=== PATIENT | male | born 1995 | race Caucasian/White ===

== ENCOUNTER 2017-05-15 01:21 | Emergency (ER) | payer SELFPAY ==
[2017-05-15 01:21] VITALS: BMI 19.1
[2017-05-15] MEDS ORDERED: Dexamethasone 4 mg/1 ml IM STA (02:46)
[2017-05-15] MEDS ORDERED: Amoxicillin-Clav 875-125 mg Tab PO STA (02:46)
[2017-05-15] MEDS ORDERED: Dexamethasone 4 mg/1 ml ONE (02:55)
[2017-05-15] MEDS ORDERED: Amoxicillin-Clav 875-125 mg Tab PO ONE (02:56)
--- NOTE | 2017-05-15 03:13 | C.PDOC ---
History Of Present Illness Patient is a 21 year old male who presents to the ER with a complaint of a sore throat and fever since last night. Patient has a Hx of frequent throat infections and had a peritonsillar abscess 3 years ago. Denies cough, SOB, nausea or vomiting. Time Seen by Provider: 05/15/17 02:11 Chief Complaint (Nursing): Fever History Per: Patient History/Exam Limitations: no limitations Onset/Duration Of Symptoms: Days (Since last night) Current Symptoms Are (Timing): Still Present Location Of Pain: Throat Sick Contacts (Context): None Associated Symptoms: Fever, Sore Throat. denies: Cough, Nausea, Vomiting, Other (SOB) Ear Symptoms: Bilateral: None Recent travel outside of the [place]: No Past Medical History Reviewed: Historical Data, Nursing Documentation, Vital Signs Vital Signs: Last Vital Signs Temp 100.1 F H 05/15/17 03:23 Pulse 98 H 05/15/17 03:23 Resp 16 05/15/17 03:23 BP 108/61 05/15/17 03:23 Pulse Ox 97 05/15/17 03:23 - Medical History PMH: No Chronic Diseases - [facility] Procedures PERITONSILLAR I & D (05/26/13) Family History: States: Unknown Family Hx - Social History Hx Tobacco Use: No Hx Alcohol Use: No Hx Substance Use: No - Immunization History Hx Tetanus Toxoid Vaccination: No Hx Influenza Vaccination: No Hx Pneumococcal Vaccination: No Review Of Systems Constitutional: Positive for: Fever ENT: Positive for: Throat Pain Respiratory: Negative for: Cough, Shortness of Breath Gastrointestinal: Negative for: Nausea, Vomiting Physical Exam - Physical Exam Appears: Non-toxic Skin: Normal Color, Warm, Dry Head: Atraumatic, Normacephalic Ear(s): Bilateral: Normal Oral Mucosa: Moist Throat: Other (Tonsillar swelling, erythema and exudates. No abscess. Uvula midline.) Neck: Normal, Supple Chest: Symmetrical, No Tenderness Cardiovascular: Rhythm Regular, No Murmur Respiratory: Normal Breath Sounds, No Rales, No Rhonchi, No Wheezing Gastrointestinal/Abdominal: Soft, No Tenderness Neurological/Psych: Oriented x3, Normal Speech, Normal Cognition ED Course And Treatment O2 Sat by Pulse Oximetry: 98 (Room air) Pulse Ox Interpretation: Normal Progress Note: Tylenol, augmentin, decadron and motrin administered. Throat culture ordered. Disposition - Disposition Referrals: Domo Quispe MD [Staff Provider] - Ray Leija MD [Staff Provider] - Disposition: HOME/ ROUTINE Disposition Time: 03:12 Condition: GOOD Additional Instructions: Follow up with the medical doctor within 1-2 days. Return if worsened. Prescriptions: Amoxicillin/Clavulanate [Augmentin 875 MG-125 MG] 1 tab PO BID #14 tab Ibuprofen [Motrin] 600 mg PO TID #21 tab Instructions: Pharyngitis (ED) - Clinical Impression Clinical Impression: Pharyngitis - Scribe Statement The provider has reviewed the documentation as recorded by the Scribe Luis A Hare All medical record entries made by the Scribe were at my direction and personally dictated by me. I have reviewed the chart and agree that the record accurately reflects my personal performance of the history, physical exam, medical decision making, and the department course for this patient. I have also personally directed, reviewed, and agree with the discharge instructions and disposition.
[2017-05-15 03:24] VITALS: BP 108/61; PULSE 98; RESP 16; TEMP 100.1
[2017-05-15 03:52] VITALS: O2SAT 98
== END 2017-05-15 03:23 | disposition home or self-care (01) ==
LOC: C.ER 01:21
DX: J02.9 Acute pharyngitis, unspecified (principal)
CPT/HCPCS: 87070; 87430; 96372; 99283; J1100

== ENCOUNTER 2017-06-05 20:08 | Observation (INO) | payer SELFPAY ==
[2017-06-05 20:08] VITALS: BMI 19.1
[2017-06-05 20:13] VITALS: O2SAT 99
[2017-06-05] MEDS ORDERED: Sodium Chloride 0.9% 1,000 ML IV STA (21:31)
[2017-06-05] MEDS ORDERED: Dexamethasone 4 mg/1 ml IVP STA (21:32)
--- NOTE | 2017-06-05 21:55 | C.PDOC ---
History Of Present Illness <Arabella Hwang - Last Filed: 06/05/17 23:26> <Sebastian Elizalde - Last Filed: 06/06/17 00:00> 21 year old male presents to the ED with complaints of worsening sore throat and feeling as though something is swollen in his throat for the last two days. Patient states he was seen on 05/15/17 with sore throat complaints and was discharged with Augmentin. He completed his Augmentin treatment and 2-3 afterwards he began to have a sore throat again. Patient denies any headache, vomiting, or other complaints. (Arabella Hwang) History Per: Patient History/Exam Limitations: no limitations Onset/Duration Of Symptoms: Days, Persistent (symptoms since april with some relief ) Current Symptoms Are (Timing): Still Present Location Of Pain: Throat Associated Symptoms: Sore Throat. denies: Fever, Chills Recent travel outside of the [place]: No Additional History Per: Prior Records <Arabella Hwang - Last Filed: 06/05/17 23:26> <Sebastian Elizalde - Last Filed: 06/06/17 00:00> Time Seen by Provider: 06/05/17 20:15 Chief Complaint (Nursing): ENT Problem Past Medical History Reviewed: Historical Data, Nursing Documentation, Vital Signs Family History: States: Unknown Family Hx - Social History Hx Tobacco Use: No Hx Alcohol Use: No Hx Substance Use: No - Immunization History Hx Tetanus Toxoid Vaccination: No Hx Influenza Vaccination: No Hx Pneumococcal Vaccination: No <Arabella Hwang - Last Filed: 06/05/17 23:26> Review Of Systems Constitutional: Negative for: Fever, Chills ENT: Positive for: Throat Pain, Throat Swelling Cardiovascular: Negative for: Chest Pain Respiratory: Negative for: Cough, Shortness of Breath Gastrointestinal: Negative for: Nausea, Vomiting, Abdominal Pain, Diarrhea <Arabella Hwang - Last Filed: 06/05/17 23:26> Physical Exam - Physical Exam Appears: Non-toxic, No Acute Distress Skin: Warm, Dry Head: Atraumatic Eye(s): bilateral: Normal Inspection, PERRL, EOMI Ear(s): Bilateral: Normal Oral Mucosa: Moist Throat: Other (Swelling to the right peritonsillar area; uvula deviated to the left; patient has hot potato voice ) <Arabella Hwang - Last Filed: 06/05/17 23:26> ED Course And Treatment - Laboratory Results Result Diagrams: 06/05/17 21:56 06/05/17 21:56 O2 Sat by Pulse Oximetry: 99 Progress Note: CT soft tissue neck is pending. Case was signed out to at 23:20. Pending CT report and dispo. <Arabella Hwang - Last Filed: 06/05/17 23:26> - Laboratory Results Result Diagrams: 06/05/17 21:56 06/05/17 21:56 - CT Scan/US CT soft tissue neck Other Rad Studies (CT/US): Read By Radiologist, Radiology Report Reviewed CT/US Interpretation: EXAM: CT Neck With Intravenous Contrast. CLINICAL HISTORY: 21 year old male with throat pain. Possible right throat swelling. Possible peritonsillar abscess. TECHNIQUE: Axial computed tomography images of the neck with intravenous contrast. This CT exam was performed using one or more of the following dose reduction techniques: automated exposure control, adjustment of the mA and/or kV according to patient size, and/or use of. iterative reconstruction technique. Coronal and sagittal reformatted images were created and reviewed. EXAM DATE/TIME: 06/05/17 (9:39pm). COMPARISON: No relevant prior studies available. FINDINGS: Nasopharynx: Unremarkable. Oropharynx: Prominent swelling/edema of each tonsil ("kissing tonsils"), with faint hypodense area. (13 mm size) on the right side --- consistent with right peritonsillar phlegmon or early abscess. formation. Hypopharynx: Unremarkable. Larynx: Unremarkable. Normal epiglottis. Trachea: Unremarkable. Retropharyngeal space: Unremarkable. Submandibular/parotid glands: Unremarkable. Glands are normal in size. Thyroid: Unremarkable. No enlarged or calcified nodules. Bones/joints: No acute fracture. Soft tissues: Unremarkable. Vasculature: No acute findings. Lymph nodes: Unremarkable. No lymphadenopathy. Lung apices: Unremarkable as visualized. IMPRESSION: Bilateral acute tonsillitis, with right peritonsillar phlegmon or early abscess formation (13 mm size). Airway compromise at the level of the enlarged tonsils ("kissing tonsils"). <Sebastian Elizalde - Last Filed: 06/06/17 00:00> Disposition - Disposition Disposition Time: 23:24 <Arabella Hwang - Last Filed: 06/05/17 23:26> <Sebastian Elizalde - Last Filed: 06/06/17 00:00> - Disposition Condition: STABLE - Clinical Impression Clinical Impression: Peritonsillar abscess - Scribe Statement The provider has reviewed the documentation as recorded by the Scribe <Arabella Hwang - Last Filed: 06/05/17 23:26> <Sebasitan Elizalde - Last Filed: 06/06/17 00:00> - Scribe Statement Reina Bates All medical record entries made by the Scribe were at my direction and personally dictated by me. I have reviewed the chart and agree that the record accurately reflects my personal performance of the history, physical exam, medical decision making, and the department course for this patient. I have also personally directed, reviewed, and agree with the discharge instructions and disposition. (Arabella Hwang) Physician Patient Turnover Patient Signed Over To: Sebastian Elizalde Handoff Comments: CT report and dispo <Arabella Hwang - Last Filed: 06/05/17 23:26>
[2017-06-05 22:00] LABS: BASO % 0.3 % (0.0-2.0); EOS % 0.3 % (0.0-4.0); HEMOGLOBIN 14.9 g/dL (12.0-18.0); LYMPH # 1.5 K/uL (1.0-4.3); LYMPH % 14.5 % (20.0-40.0); MEAN CELL VOLUME 81.6 fL (80.0-94.0); MEAN CORPUSCULAR HEMOGLOBIN 26.6 pg (27.0-31.0); MEAN CORPUSCULAR HGB CONC 32.6 g/dL (33.0-37.0); MEAN PLATELET VOLUME 8.4 fL (7.2-11.7); MONO % 9.7 % (0.0-10.0); NEUT # 7.7 K/uL (1.8-7.0); NEUT % 75.2 % (50.0-75.0); RBC 5.59 Mil/uL (4.40-5.90); RED CELL DISTRIBUTION WIDTH 13.9 % (11.5-14.5); WHITE BLOOD COUNT 10.2 K/uL (4.8-10.8)
[2017-06-05] MEDS ORDERED: Dexamethasone 4 mg/1 ml ONE ×2 (22:00→22:01)
[2017-06-05] MEDS ORDERED: Sodium Chloride 0.9% 1,000 ML ONE (22:00)
[2017-06-05 22:12] LABS: ALBUMIN 4.2 g/dL (3.5-5.0)
[2017-06-05 22:14] LABS: GFR AFRICAN-AMERICAN > 60; GFR NON-AFRICAN AMERICAN > 60
[2017-06-05 22:15] LABS: ALB/GLOB RATIO 1.1 (1.0-2.1); ALT/SGPT 22 U/L (21-72); AST/SGOT 18 U/L (17-59); BLOOD UREA NITROGEN 9 mg/dL (9-20); CALCIUM 9.3 mg/dl (8.6-10.4)
[2017-06-05] MEDS ORDERED: Clindamycin 600mg/50ml D5W 600 MG/50 ML VIAL IVPB ONE (22:23)
[2017-06-05] MEDS ORDERED: Iodixanol 320 mg/ml 150 ml Bottle IV ONE (22:29)
[2017-06-06 03:33] VITALS: RESP 20; TEMP 97.5
[2017-06-06] MEDS: CLINDAMYCIN IVPB SCH ×3 (06:08→16:09)
[2017-06-06] MEDS: SODIUM CHLORIDE 0.9% IVPB SCH ×3 (06:08→16:09)
[2017-06-06] MEDS: Sodium Chloride 0.9% 1,000 ML IV SCH ×2 (06:12→11:46)
--- NOTE | 2017-06-06 06:28 | CP.PCM.HP ---
Addendum entered and electronically signed by Tashia Nguyen 06/06/17 08:09 : ROS-Mouth: throat swelling, sore throat, dysphagia Original Note: <Tashia Nguyen. - Last Filed: 06/06/17 07:36> History of Present Illness - History of Present Illness History of Present Illness: CC: swollen throat HPI: 21 year old male with a past medical history of peritonsilar abscess and recurrent sore throats, presents with swollen throat. Patient had a swollen throat 2 weeks ago and treated it with amoxicillin. The swollen throat did not completely subside after antibiotic treatment. Currently, his pain is a 3/10, but his pain gets as high as 9/10. The patient tried hot tea with lemon with no relief. Patient admits to have fevers, sore throat, dysphagia, and phlegm. The patient has had 3 total episode of swollen throat. Patient had surgery for his peritonsilar abscess when he was 16years old. Patient denies chills, weakness, chest pain, palpitations, shortness of breath, abdominal pain, nausea, and vomiting. PMD: none PMHx: denies PSx: surgery for peritonsilar abscess 2011 FamHx: all 4 grandparents had strokes Allergies: NKDA Medication: none Present on Admission - Present on Admission Any Indicators Present on Admission: No Review of Systems - Constitutional Constitutional: Fever. absent: Chills, Excessive Sweating - EENT Eyes: absent: Change in Vision, Other Visual Disturbances - Cardiovascular Cardiovascular: absent: Chest Pain, Diaphoresis, Dyspnea, Palpitations - Respiratory Respiratory: Pain on Inspiration. absent: Cough, Dyspnea - Gastrointestinal Gastrointestinal: absent: Abdominal Pain, Constipation, Diarrhea, Nausea, Vomiting - Genitourinary Genitourinary: absent: Dysuria, Urinary Frequency - Musculoskeletal Musculoskeletal: absent: Back Pain, Muscle Weakness - Integumentary Integumentary: Unusual Bruising. absent: Rash, Swelling - Neurological Neurological: absent: Dizziness, Loss of Vision, Weakness - Endocrine Endocrine: absent: Fatigue, Palpitations Past Patient History - Infectious Disease Hx of Infectious Diseases: None - Past Medical History & Family History Past Medical History?: No - Past Social History Smoking Status: Light Smoker < 10 Cigarettes Daily - MUSCULOSKELETAL/RHEUMATOLOGICAL Hx Falls: No - PSYCHIATRIC Hx Substance Use: No - SURGICAL HISTORY Hx Surgeries: Yes Other/Comment: "throat sx to drain abcess in my throat 2016" - ANESTHESIA Hx Anesthesia: Yes Hx Anesthesia Reactions: No Hx Malignant Hyperthermia: No Meds Allergies/Adverse Reactions: Allergies Allergy/AdvReac Type Severity Reaction Status Date / Time No Known Allergies Allergy Verified 12/17/14 22:44 Results - Vital Signs Recent Vital Signs: Last Vital Signs Temp 97.5 F L 06/06/17 02:37 Pulse 81 06/06/17 02:37 Resp 20 06/06/17 02:37 BP 113/73 06/06/17 02:37 Pulse Ox 99 06/06/17 01:02 - Labs Result Diagrams: 06/05/17 21:56 06/05/17 21:56 Assessment & Plan (1) Acute tonsillitis Assessment and Plan: Possible peritonsilar abscess Group A beta Strep: positive CT: b/l acute tonsillitis with right peritonsilar phlegmon or early abscess formation (13mm); kissing tonsils, airway compromise at levels of enlarged tonsils. CXR: f/u EKG: f/u Coags: f/u Blood Cx: f/u Clindamycin 500mg IV Q 6 Toradol 15mgIN prn ENT consults, Dr. Alcazar, help appreciated. Status: Acute (2) Prophylactic measure Assessment and Plan: SCDs Regular Diet Pepcid 20mg PO BID Coags: f/u Status: Acute <Gerardo Zamudio - Last Filed: 06/06/17 19:25> Results - Vital Signs Recent Vital Signs: Last Vital Signs Temp 97.5 F L 06/06/17 02:37 Pulse 61 06/06/17 15:35 Resp 20 06/06/17 02:37 BP 128/66 06/06/17 15:35 Pulse Ox 99 06/06/17 01:02 - Labs Result Diagrams: 06/05/17 21:56 06/05/17 21:56 Assessment & Plan - Date & Time Date: 06/06/17 (I have seen and examined the patient. I agree with the findings and plan of care as documented by Dr. Sykes. Patient with acute recurrent tonsillitis. Consult to ENT. Clinda IV for now. Medically optimize in case patient needs to go for procedure. Monitor for acute changes. Symptomatic treatment.) Time: 19:24 Attending/Attestation - Attestation I have personally seen and examined this patient.: Yes I have fully participated in the care of the patient.: Yes I have reviewed all pertinent clinical information: Yes
[2017-06-06] MEDS ORDERED: Lidocaine 2% w Epi 1:100,000 Inj IJ ONE (08:30)
--- NOTE | 2017-06-06 08:31 | RAD ---
HISTORY: pre-op clearance COMPARISON: No prior. TECHNIQUE: Chest PA and lateral FINDINGS: LUNGS: Mild venous congestion. Right hilar prominence. Punctate nodular density at the right lung apex may represent prominent vessel on end. PLEURA: No significant pleural effusion identified. No pneumothorax apparent. CARDIOVASCULAR: Normal. OSSEOUS STRUCTURES: No significant abnormalities. VISUALIZED UPPER ABDOMEN: Normal. OTHER FINDINGS: None. IMPRESSION: Mild venous congestion.
--- NOTE | 2017-06-06 09:16 | CT ---
CT neck soft tissue History: Right throat swelling. Evaluate for peritonsillar abscess. Comparison: None available. Technique: Axial computed tomographic images were performed through the neck with the use of intravenous contrast. Subsequently, sagittal and coronal reformatted images were obtained. This CT exam was performed using one or more of the following dose reduction techniques: Automated exposure control, adjustment of the mA and/or kV according to patient size, and/or use of iterative reconstruction technique. Findings: Prominent swelling and thickening of the bilateral tonsils which appear to abut each other. In addition, there is a 1.8 x 1.1 centimeter focal area of somewhat ill-defined low attenuation within the right peritonsillar region best seen on series 2, image 30 concerning for a right peritonsillar phlegmon and/or early abscess collection. Minimal mucosal thickening of the left maxillary sinus. Bilateral parotid and submandibular glands are preserved. Thyroid gland is preserved. Nasal and hypopharynx appear grossly preserved. Visualized osseous structures are grossly preserved. Few shotty lymph nodes are noted. 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 Impression: Findings concerning for a bilateral acute tonsillitis with a right peritonsillar phlegmon and or early abscess collection as described above. This measures up to 1.8 x 1.1 centimeters. In addition, there is a suggestion of possible airway compromise at the level of the enlarged tonsils. These findings were preliminarily reported at 11:24 p.m. on 06/05/[address] Lizette Ortiz from [employer].
--- NOTE | 2017-06-06 10:04 | CP.PCM.PN ---
Subjective - Date & Time of Evaluation Date of Evaluation: 06/06/17 Time of Evaluation: 10:02 - Subjective Subjective: Incision and drainage of peritonsillar abscess right: Area was injected with lido and epi, incision made in peritonsillar area. Clamp dissections done, pus was noted coming out, bleeding controlled with time. Objective - Vital Signs/Intake and Output Vital Signs (last 24 hours): Temp Pulse Resp BP Pulse Ox 97.5 F L 81 20 113/73 99 06/06/17 02:37 06/06/17 02:37 06/06/17 02:37 06/06/17 02:37 06/06/17 01:02 - Medications Medications: Current Medications Clindamycin Phosphate 500 mg/ (Sodium Chloride) 53.3333 mls @ 106.667 mls/hr IVPB Q6H [facility] Last Admin: 06/06/17 06:08 Dose: 106.667 mls/hr Sodium Chloride (Sodium Chloride 0.9%) 1,000 mls @ 100 mls/hr IV .Q10H [facility] Last Admin: 06/06/17 06:12 Dose: 100 mls/hr Ketorolac Tromethamine (Toradol) 15 mg IVP Q6 PRN PRN Reason: Pain, Mild (1-3)
[2017-06-06 15:35] VITALS: BP 128/66; PULSE 61
[2017-06-06] MEDS ORDERED: Pneumococcal 23-Valent Vaccine IM ONE (15:35)
--- NOTE | 2017-06-06 17:52 | CP.PCM.DIS ---
<Héctor Penaloza - Last Filed: 06/06/17 17:49> Provider - Provider Date of Admission: 06/05/17 23:35 Attending physician: Dr. Toyin Saldana DO Primary care physician: None Consults: ENT - Dr. Quispe Time Spent in preparation of Discharge (in minutes): 45 Diagnosis - Discharge Diagnosis (1) Peritonsillar abscess Status: Acute Comment: I&D performed by Dr. Quispe on 06/06/17. Started on Augmentin 875/125mg PO Q12h for 10 days. f/u in [facility] and Dr. Quispe within 1 week. Group A Strep positive Hospital Course - Lab Results Lab Results: Most Recent Lab Values WBC 10.2 K/uL (4.8-10.8) 06/05/17 21:56 RBC 5.59 Mil/uL (4.40-5.90) 06/05/17 21:56 Hgb 14.9 g/dL (12.0-18.0) 06/05/17 21:56 Hct 45.6 % (35.0-51.0) 06/05/17 21:56 MCV 81.6 fL (80.0-94.0) D 06/05/17 21:56 MCH 26.6 pg (27.0-31.0) L 06/05/17 21:56 MCHC 32.6 g/dL (33.0-37.0) L 06/05/17 21:56 RDW 13.9 % (11.5-14.5) 06/05/17 21:56 Plt Count 237 K/uL (130-400) 06/05/17 21:56 MPV 8.4 fL (7.2-11.7) 06/05/17 21:56 Neut % (Auto) 75.2 % (50.0-75.0) H 06/05/17 21:56 Lymph % (Auto) 14.5 % (20.0-40.0) L 06/05/17 21:56 Greene % (Auto) 9.7 % (0.0-10.0) 06/05/17 21:56 Eos % (Auto) 0.3 % (0.0-4.0) 06/05/17 21:56 Baso % (Auto) 0.3 % (0.0-2.0) 06/05/17 21:56 Neut # 7.7 K/uL (1.8-7.0) H 06/05/17 21:56 Lymph # 1.5 K/uL (1.0-4.3) 06/05/17 21:56 Greene # 1.0 K/uL (0.0-0.8) H 06/05/17 21:56 Eos # 0.0 K/uL (0.0-0.7) 06/05/17 21:56 Baso # 0.0 K/uL (0.0-0.2) 06/05/17 21:56 Sodium 138 mmol/L (132-148) 06/05/17 21:56 Potassium 3.7 mmol/L (3.6-5.2) 06/05/17 21:56 Chloride 103 mmol/L (98-107) 06/05/17 21:56 Carbon Dioxide 24 mmol/L (22-30) 06/05/17 21:56 Anion Gap 15 (10-20) 06/05/17 21:56 BUN 9 mg/dL (9-20) 06/05/17 21:56 Creatinine 1.0 MG/DL (0.8-1.5) 06/05/17 21:56 Est GFR ( Amer) > 60 06/05/17 21:56 Est GFR (Non-Af Amer) > 60 06/05/17 21:56 Random Glucose 90 mg/dL (75-110) 06/05/17 21:56 Calcium 9.3 mg/dl (8.6-10.4) 06/05/17 21:56 Total Bilirubin 1.0 mg/dL (0.2-1.3) 06/05/17 21:56 AST 18 U/L (17-59) 06/05/17 21:56 ALT 22 U/L (21-72) 06/05/17 21:56 Alkaline Phosphatase 94 U/L (38-126) 06/05/17 21:56 Total Protein 7.8 g/dL (6.3-8.3) 06/05/17 21:56 Albumin 4.2 g/dL (3.5-5.0) 06/05/17 21:56 Globulin 3.7 gm/dL (2.2-3.9) 06/05/17 21:56 Albumin/Globulin Ratio 1.1 (1.0-2.1) 06/05/17 21:56 Grp A Beta Strep Ag Positive (NEGATIVE) H 06/05/17 21:59 - Hospital Course Hospital Course: As per admission HPI: 21 year old male with a past medical history of peritonsilar abscess and recurrent sore throats, presents with swollen throat. Patient had a swollen throat 2 weeks ago and treated it with amoxicillin. The swollen throat did not completely subside after antibiotic treatment. Currently, his pain is a 3/10, but his pain gets as high as 9/10. The patient tried hot tea with lemon with no relief. Patient admits to have fevers, sore throat, dysphagia, and phlegm. The patient has had 3 total episode of swollen throat. Patient had surgery for his peritonsilar abscess when he was 16years old. Patient denies chills, weakness, chest pain, palpitations, shortness of breath, abdominal pain, nausea, and vomiting. Patient was admitted for treatment of peritonsillar abscess. Patient's CT showedb/l acute tonsillitis with right peritonsilar phlegmon or early abscess formation (13mm); kissing tonsils, airway compromise at levels of enlarged tonsils. Group A beta strep positive. Patient was started on Clindamycin. Patient was seen by ENT, Dr. Quispe, who performed an I&D of the abscess, which drain pus. Patient was instructed to continue liquid diet for one day then may resume regular diet. Patient discharged with Augmentin 875/125mg PO Q12h for 10 days, with instructions to followup in the [facility] and Dr. Quispe. Discharge Exam - Head Exam Head Exam: NORMAL INSPECTION, NORMOCEPHALIC - Eye Exam Eye Exam: EOMI, Normal appearance Pupil Exam: NORMAL ACCOMODATION, PERRL - ENT Exam ENT Exam: Mucous Membranes Moist Additional comments: open wound from tonsillar abscess I&D - Respiratory Exam Respiratory Exam: Clear to PA & Lateral, NORMAL BREATHING PATTERN, UNREMARKABLE. absent: Prolonged Expiratory Phase, Rales, Rhonchi, Wheezes - Cardiovascular Exam Cardiovascular Exam: REGULAR RHYTHM, +S1, +S2 - GI/Abdominal Exam GI & Abdominal Exam: Normal Bowel Sounds, Soft, Unremarkable. absent: Distended , Firm, Tenderness - Extremities Exam Extremities exam: normal capillary refill, pedal pulses present - Neurological Exam Neurological exam: Alert, CN II-XII Intact, Oriented x3 - Psychiatric Exam Psychiatric exam: Normal Affect, Normal Mood - Skin Skin Exam: Dry, Intact, Normal Color, Warm Discharge Plan - Discharge Medications Prescriptions: Amoxicillin/Clavulanate [Augmentin 875 MG-125 MG] 1 tab PO Q12H #10 tab - Follow Up Plan Condition: FAIR Disposition: HOME/ ROUTINE Instructions: Amoxicillin/Clavulanate Potassium (By mouth), Peritonsillar Abscess (DC) Additional Instructions: Please discharge patient home, as per Dr. Saldana. Patient is to followup with Dr. Quispe in 1 week. Patient is to establish care in the [facility] in 1 week, to obtain ENT referral before going to Dr. Quispe. Patient is continue liquid only diet for one day, then may resume regular diet. Patient is to take Augmentin 875/125mg PO Q12h for 10 days. If symptoms worsen, please return to the hospital for further evaluation and treatment. Referrals: [facility] at [facility] [Outside] Domo Quispe MD [Staff Provider] - <Toyin Saldana V - Last Filed: 06/06/17 23:49> Provider - Provider Date of Admission: 06/05/17 23:35 Attending physician: Gerardo Zamudio MD Hospital Course - Lab Results Lab Results: Most Recent Lab Values WBC 10.2 K/uL (4.8-10.8) 06/05/17 21:56 RBC 5.59 Mil/uL (4.40-5.90) 06/05/17 21:56 Hgb 14.9 g/dL (12.0-18.0) 06/05/17 21:56 Hct 45.6 % (35.0-51.0) 06/05/17 21:56 MCV 81.6 fL (80.0-94.0) D 06/05/17 21:56 MCH 26.6 pg (27.0-31.0) L 06/05/17 21:56 MCHC 32.6 g/dL (33.0-37.0) L 06/05/17 21:56 RDW 13.9 % (11.5-14.5) 06/05/17 21:56 Plt Count 237 K/uL (130-400) 06/05/17 21:56 MPV 8.4 fL (7.2-11.7) 06/05/17 21:56 Neut % (Auto) 75.2 % (50.0-75.0) H 06/05/17 21:56 Lymph % (Auto) 14.5 % (20.0-40.0) L 06/05/17 21:56 Greene % (Auto) 9.7 % (0.0-10.0) 06/05/17 21:56 Eos % (Auto) 0.3 % (0.0-4.0) 06/05/17 21:56 Baso % (Auto) 0.3 % (0.0-2.0) 06/05/17 21:56 Neut # 7.7 K/uL (1.8-7.0) H 06/05/17 21:56 Lymph # 1.5 K/uL (1.0-4.3) 06/05/17 21:56 Greene # 1.0 K/uL (0.0-0.8) H 06/05/17 21:56 Eos # 0.0 K/uL (0.0-0.7) 06/05/17 21:56 Baso # 0.0 K/uL (0.0-0.2) 06/05/17 21:56 Sodium 138 mmol/L (132-148) 06/05/17 21:56 Potassium 3.7 mmol/L (3.6-5.2) 06/05/17 21:56 Chloride 103 mmol/L (98-107) 06/05/17 21:56 Carbon Dioxide 24 mmol/L (22-30) 06/05/17 21:56 Anion Gap 15 (10-20) 06/05/17 21:56 BUN 9 mg/dL (9-20) 06/05/17 21:56 Creatinine 1.0 MG/DL (0.8-1.5) 06/05/17 21:56 Est GFR ( Amer) > 60 06/05/17 21:56 Est GFR (Non-Af Amer) > 60 06/05/17 21:56 Random Glucose 90 mg/dL (75-110) 06/05/17 21:56 Calcium 9.3 mg/dl (8.6-10.4) 06/05/17 21:56 Total Bilirubin 1.0 mg/dL (0.2-1.3) 06/05/17 21:56 AST 18 U/L (17-59) 06/05/17 21:56 ALT 22 U/L (21-72) 06/05/17 21:56 Alkaline Phosphatase 94 U/L (38-126) 06/05/17 21:56 Total Protein 7.8 g/dL (6.3-8.3) 06/05/17 21:56 Albumin 4.2 g/dL (3.5-5.0) 06/05/17 21:56 Globulin 3.7 gm/dL (2.2-3.9) 06/05/17 21:56 Albumin/Globulin Ratio 1.1 (1.0-2.1) 06/05/17 21:56 Grp A Beta Strep Ag Positive (NEGATIVE) H 06/05/17 21:59 Attending/Attestation - Attestation I have personally seen and examined this patient.: Yes I have fully participated in the care of the patient.: Yes I have reviewed all pertinent clinical information, including history, physical exam and plan: Yes Notes (Text): Patient seen, examined and case discussed with day-time resident. Resident seen and observed ENT I&D patient's tonsillar abscess at bedside today , recommended 10 day course of Augmentin and follow-up in the clinic and [facility] upon discharge. Per ENT, patient is stable for discharge and to not eat for the first 24 hours to not infect the site. Discussed with patient post-procedure, patient is aware upon completion of antibiotics that its likely he will need a tonsillectomy. Advised diet modifications in light of I&D. Discussed disorder order and discharge instructions with day-time resident and patient. Patient given script for Augmentin 875-125mg PO BID for next ten days; advised to take with yogurt. F/u [facility] ([phone]; I physically placed the number on patient's cell phone and advised to call and to follow-up with ENT). Patient is medically stable for discharge. Per ENT, patient is stable for discharge. This is a summary of patient's hospitalization. Please see EMR for further details
[2017-06-09] MEDS ORDERED: Pneumococcal 23-Valent Vaccine IM ONE (10:00)
--- NOTE | 2017-06-11 07:58 | CARD ---
APPROVED REPORT EKG Measurement Heart [id number] <Conclusion> Sinus rhythm Early repolarization ST abnormality Otherwise normal ECG
== END 2017-06-06 20:14 | disposition home or self-care (01) ==
LOC: C.ER 20:08 → C.9E 23:35 → C.5T 06-06 02:12
PROVIDERS: ADMIT Family Medicine; ATTEND Family Medicine
DX: J36 Peritonsillar abscess (principal); Z23 Encounter for immunization
CPT/HCPCS: 70491; 71020; 80053; 85025; 87040; 87430; 90732; 96361; 96365; 96366; 96375; 96376; 99284; G0009; G0378; J1100; J1885; J7040; Q9965